=== PATIENT | male | born 1955 | race American Indian/Alaskan Native ===

== ENCOUNTER 2018-08-22 10:30 | Day surgery (SDC) | payer BC ==
[2018-08-14 10:34] LABS: Basophils # (Auto) 0.1 K/mm3 (0.0-0.1); Basophils % (Auto) 1.1 % (0.0-1.8); Eosinophils # (Auto) 0.2 K/mm3 (0.0-0.4); Eosinophils % (Auto) 3.4 % (0.0-4.3); Hematocrit 43.1 % (35.5-45.6); Hemoglobin 14.2 gm/dl (11.8-15.2); Lymphocytes % (Auto) 48.6 % (13.4-35.0); Mean Corpuscular HGB Conc 33 % (32-34); Mean Corpuscular Volume 86 fl (84-94); Monocytes # (Auto) 0.5 K/mm3 (0.0-0.8); Monocytes % (Auto) 8.1 % (0.0-7.3); Platelet Count 244 K/mm3 (140-440); Red Blood Count 5.03 M/mm3 (3.65-5.03); Red Cell Distribution Width 13.5 % (13.2-15.2)
[2018-08-14 10:44] LABS: INR 1.03 (0.87-1.13)
[2018-08-14 10:45] LABS: Partial Thromboplastin Time 21.8 Sec. (24.2-36.6)
[2018-08-14 10:49] LABS: Alanine Aminotransferase 25 units/L (7-56); Albumin 4.3 g/dL (3.9-5); BUN/Creatinine Ratio 12; Blood Urea Nitrogen 12 mg/dL (9-20); Calcium 10.6 mg/dL (8.4-10.2); Hemolysis Index 18
--- NOTE | 2018-08-14 12:30 | Anesthesia Consultation ---
Anesthesia Consult and Med Hx Date of service: 08/14/18 - Airway Anesthetic Teeth Evaluation: Good, Crowns ROM Head & Neck: Inadequate (slight decreased extension) Mental/Hyoid Distance: Adequate Mallampati Class: Class III Intubation Access Assessment: Possibly Difficult - Pulmonary Exam CTA: Yes - Cardiac Exam Cardiac Exam: RRR - Pre-Operative Health Status ASA Pre-Surgery Classification: ASA3 Proposed Anesthetic Plan: General - Pulmonary Hx Smoking: Yes (STOPPED 2010 (casual smoker X 14 YRS)) Hx Asthma: No (patient denies; states inhaler prescribed prior to DAVE diagnosis) Hx Respiratory Symptoms: No COPD: No Hx Sleep Apnea: Yes (+ CPAP) - Cardiovascular System Hx Hypertension: Yes Hx Heart Attack/AMI: No Hx Percutaneous Transluminal Coronary Angioplasty (PTCA): No Hx Cardia Arrhythmia: No - Central Nervous System Hx Seizures: No CVA: No Hx Psychiatric Problems: No - Gastrointestinal Hx Gastroesophageal Reflux Disease: Yes (occasional; treated with OTC antacids) - Endocrine Hx Renal Disease: No Hx End Stage Renal Disease: No Hx Liver Disease: No Hx Insulin Dependent Diabetes: No Hx Non-Insulin Dependent Diabetes: No Hx Thyroid Disease: No - Other Systems Hx Alcohol Use: Yes Hx Substance Use: No Hx Cancer: Yes (prostate Ca 2010; s/p prostatectomy) Hx Obesity: No - Additional Comments Anesthesia Medical History Comments: No hx anesthetic complications. Instructed to take amlodipine and hold losartan DOS.
[~2018-08-22 10:30] MED LIST: LACTATED RINGERS 1,000 ML IV SCH; LEVAQUIN 500MG/100ML 500 MG/100 ML BAG IV NR; VERSED IV NR
[2018-08-22] MEDS ORDERED: DILAUDID IV PRN (11:48)
--- NOTE | 2018-08-22 11:48 | Anesthesia Day of Surgery ---
Anesthesia Day of Surgery - Day of Surgery Patient Examined: Yes Patient H&P Reviewed: Yes Patient is NPO: Yes
[2018-08-22] MEDS ORDERED: LEVAQUIN 500MG/100ML 500 MG/100 ML BAG IV NR (12:00)
[2018-08-22] MEDS ORDERED: SUBLIMAZE ONE (12:12)
[2018-08-22] MEDS ORDERED: DIPRIVAN 10 MG/ML IV ONE ×2 (12:12→14:16)
[2018-08-22] MEDS ORDERED: XYLOCAINE MPF 2% ONE (12:12)
[2018-08-22] MEDS ORDERED: NEOSPORIN GU IR ONE (12:38)
[2018-08-22] MEDS ORDERED: NACL 0.9% 100 ML ONE (12:56)
[2018-08-22] MEDS ORDERED: NACL ONE (12:56)
[2018-08-22] MEDS ORDERED: BACITRACIN ONE (12:57)
[2018-08-22] MEDS ORDERED: DILAUDID ONE (14:06)
--- NOTE | 2018-08-22 15:24 | Short Stay Summary ---
Short Stay Documentation Date of service: 08/22/18 - History H&P: obtained from office - Allergies and Medications Current Medications: Allergies lisinopril Adverse Reaction (Verified 07/21/15 09:24) COUGH Penicillins Adverse Reaction (Verified 08/22/18 10:46) Itching Home Medications Medication Instructions Recorded Confirmed Last Taken Type Aspirin [Aspirin BABY CHEW TAB] 81 mg PO DAILY 05/08/14 08/22/18 1 Week Ago History ~08/15/18 Simvastatin 40 mg PO QHS 05/08/14 08/22/18 08/21/18 History Adalimumab [Humira Pen] 50 mcg SUB-Q Q2W 07/16/15 08/22/18 1 Week Ago History ~08/15/18 Losartan [Cozaar] 100 mg PO QDAY 07/16/15 08/22/18 08/22/18 08:00 History amLODIPine [Norvasc] 5 mg PO DAILY 07/16/15 08/09/18 08/21/18 History azaTHIOprine [Imuran] 1 tab PO DAILY 07/16/15 08/22/18 1 Month Ago History ~07/22/18 Albuterol Sulfate [Proair 90 mcg IH DAILY PRN 07/21/15 08/09/18 07/08/15 History Respiclick] Active Medications Hydromorphone HCl (Dilaudid) 0.5 mg IV Q10MIN PRN PRN Reason: Pain , Severe (7-10) Stop: 08/22/18 23:59 Lactated Ringer's (Lactated Ringers) 1,000 mls @ 100 mls/hr IV DIRECT HARSHIL Last Admin: 08/22/18 11:25 Dose: 100 mls/hr Documented by: Midazolam HCl (Versed) 2 mg IV PREOP NR Stop: 08/22/18 23:59 Last Admin: 08/22/18 11:27 Dose: 2 mg Documented by: - Brief post op/procedure progress note Date of procedure: 08/22/18 Pre-op diagnosis: malfunction AUS Post-op diagnosis: other (cuff erosion) Procedure: cysto,removal of cuff, (reservior & pump intact---capped ) Anesthesia: GETA Surgeon: WON MONTIEL Estimated blood loss: minimal Pathology: none (cuff) Specimen disposition: to lab Condition: stable - Hospital course Hospital course: bactrim & norco on chart - Disposition Condition at discharge: Stable Disposition: [id number] TO HOME OR SELFCARE Short Stay Discharge Plan Follow up with: KELLE SEARS MD [Primary Care Provider] - 7 Days
--- NOTE | 2018-08-22 16:26 | Operative Report ---
PREOPERATIVE DIAGNOSIS: Malfunctioning penile prosthesis. POSTOPERATIVE DIAGNOSIS: Cuff erosion. PROCEDURES: Cystoscopy, removal of cuff, intraoperative test of reservoir and capping of reservoir and pump, silk stitch. SURGEON: Cristian Richard MD ANESTHESIA: General. ESTIMATED BLOOD LOSS: Minimal. FLUIDS: Crystalloid. COMPLICATIONS: No complications. INDICATIONS: This patient is a 62-year-old gentleman known to my service, diagnosis of prostate cancer, underwent radical robotic prostatectomy in 2010 and continued to have problems with erections as well as urinary incontinence. He underwent inflatable penile prosthesis in 2013 and subsequent artificial urinary sphincter in 2015. He had done well until recently. In August 2013, noticed changes in flow of his urination, cystoscopy, no exposed device, valve appeared malfunction in the scrotum, could not compress the pump. Continue to follow conservatively as symptoms did not get better and so we needed to proceed with exploration because the pump now had frozen and revision of left groin tubing which could be seen and there was a cosmetic concern. DESCRIPTION OF PROCEDURE: The patient was taken to the operative suite, placed in a supine position. After adequate general anesthesia, he was placed in a dorsal lithotomy position, prepped and draped in a sterile fashion. Pancystourethroscopy was performed with a 16-Latvian flexible cystoscope. Obvious cuff erosion could be appreciated. Therefore, a perineal incision was made. Sharp dissection was taken down to the cuff, which was removed. Then, a cystoscopy was performed again. A 0.05 Glidewire was advanced into the bladder. A 16-Latvian Johnson catheter was placed in the bladder. Another incision made in the left groin. Sharp dissection was taken down to the tubing and there was a defect in the skin where you could palpate the tubing. The patient was concerned about that dissected the tubing free. Rubber-shod was placed on the tubing to the reservoir and cuff and it was cut. The fluid in the reservoir was 20 mL, clear fluid. A 25 mL was placed back in there. A metal cap was placed and tied with a silk and 1 inch silk was left to help track only come back. The cuff was then removed. The tubing to the reservoir and pump was cut and capped as well. WE WILL REEVALUATE THE PUMP FOR POSSIBLE ANEURYSM IN 3 MONTHS AND POSSIBLE REPLACEMENT OF THE CUFF AND PUMP. The goal is to leave the reservoir intact. Copious irrigation was performed. Adequate hemostasis achieved. The subcutaneous tissue was closed with 2-0 Vicryl in a running fashion. Skin was closed with jaime. Next, attention was taken to the perineum. Copious irrigation again was performed. Adequate hemostasis achieved. Subcutaneous tissue was closed with 2-0 Vicryl in a running fashion. Skin was closed with 2-0 Vicryl in interrupted fashion. The patient tolerated the procedure well. Johnson catheter was left indwelling, he will keep for 10 days. He was extubated and taken to recovery room. Fluffs and mesh pants were placed. He will go home on Bactrim and [place]. JOB# [id number] BRENDAN/LOUANN
[2018-08-22] MEDS ORDERED: NORCO 5/325 ONE (16:53)
[2018-08-22 17:49] VITALS: BP 144/78
== END 2018-08-22 10:31 | disposition home or self-care (01) ==
LOC: OR 10:30
PROVIDERS: ATTEND Urology
DX: T83.490A Other mechanical complication of implanted penile prosthesis, initial encounter (principal); I10 Essential (primary) hypertension; E78.5 Hyperlipidemia, unspecified; M06.9 Rheumatoid arthritis, unspecified; J45.909 Unspecified asthma, uncomplicated; E78.00 Pure hypercholesterolemia, unspecified; G47.30 Sleep apnea, unspecified; K21.9 Gastro-esophageal reflux disease without esophagitis; Z72.89 Other problems related to lifestyle; Z79.899 Other long term (current) drug therapy; Z79.01 Long term (current) use of anticoagulants; Z87.891 Personal history of nicotine dependence; Z98.890 Other specified postprocedural states; Z85.46 Personal history of malignant neoplasm of prostate; Z88.8 Allergy status to other drugs, medicaments and biological substances; Y83.8 Other surgical procedures as the cause of abnormal reaction of the patient, or of later complication, without mention of misadventure at the time of the procedure; Y92.89 Other specified places as the place of occurrence of the external cause
CPT/HCPCS: 36415; 52000; 54408; 80053; 85025; 85610; 85730; 88302; J1170; J1956; J2250; J2704; J3010; J7120

== ENCOUNTER 2019-02-25 06:20 | Observation (INO) | payer BC ==
[~2019-02-25 06:20] MED LIST changes: -LEVAQUIN 500MG/100ML 500 MG/100 ML BAG IV NR; +NEURONTIN PO NR
[2019-02-25] MEDS ORDERED: VANCOMYCIN 1,250 MG in NACL 0.9% 250ML 250 ML IV ONE (06:43)
[2019-02-25] MEDS ORDERED: CLEOCIN 900 MG/50 mL 900 MG/50 ML BAG IV NR (07:00)
[2019-02-25] MEDS ORDERED: GENTAMICIN IV SCH (07:00)
[2019-02-25] MEDS ORDERED: GENTAMICIN/NS 120MG/100ML 120 MG/100 ML BAG IV ONE (07:00)
[2019-02-25] MEDS ORDERED: NACL BACTERIOSTATIC INFILTRATI ONE (07:08)
--- NOTE | 2019-02-25 07:18 | Anesthesia Consultation ---
Anesthesia Consult and Med Hx Date of service: 02/25/19 - Airway Anesthetic Teeth Evaluation: Good ROM Head & Neck: Inadequate (restricred extension) Mental/Hyoid Distance: Adequate Mallampati Class: Class III Intubation Access Assessment: Possibly Difficult (previous easy LMA 4) - Pulmonary Exam CTA: Yes - Cardiac Exam Cardiac Exam: RRR - Pre-Operative Health Status ASA Pre-Surgery Classification: ASA3 - Pulmonary Hx Smoking: Yes (STOPPED 2010 (casual smoker X 14 YRS)) Hx Asthma: No (patient denies; states inhaler prescribed prior to DAVE diagnosis) Hx Respiratory Symptoms: No COPD: No Hx Sleep Apnea: Yes (compliant with CPAP) - Cardiovascular System Hx Hypertension: Yes (took amlodipine and losartan/HCTZ this morning) Hx Coronary Artery Disease: No Hx Heart Attack/AMI: No Hx Percutaneous Transluminal Coronary Angioplasty (PTCA): No - Central Nervous System Hx Seizures: No CVA: No Hx Back Pain: Yes (neck pain s/p ACDF) Hx Psychiatric Problems: No - Gastrointestinal Hx Gastroesophageal Reflux Disease: Yes (well controlled) - Endocrine Hx Renal Disease: No Hx Liver Disease: No Hx Insulin Dependent Diabetes: No Hx Non-Insulin Dependent Diabetes: No Hx Thyroid Disease: No - Other Systems Hx Cancer: Yes (prostate Ca 2010; s/p prostatectomy) Hx Obesity: No - Additional Comments Anesthesia Medical History Comments: No hx anesthetic complications.
--- NOTE | 2019-02-25 07:18 | Anesthesia Day of Surgery ---
Anesthesia Day of Surgery - Day of Surgery Patient Examined: Yes Patient H&P Reviewed: Yes Patient is NPO: Yes
[2019-02-25] MEDS ORDERED: SUBLIMAZE IV PRN (07:20)
[2019-02-25] MEDS ORDERED: BLOXIVERZ ONE (07:36)
[2019-02-25] MEDS ORDERED: XYLOCAINE MPF 2% ONE (07:36)
[2019-02-25] MEDS ORDERED: ROBINUL ONE (07:36)
[2019-02-25] MEDS ORDERED: ZOFRAN ONE (07:36)
[2019-02-25] MEDS ORDERED: ZEMURON IV ONE (07:36)
[2019-02-25] MEDS ORDERED: DECADRON ONE (07:36)
[2019-02-25] MEDS ORDERED: DIPRIVAN 10 MG/ML IV ONE (07:37)
[2019-02-25] MEDS ORDERED: VERSED ONE (07:37)
[2019-02-25] MEDS ORDERED: SUBLIMAZE ONE ×2 (07:37→09:36)
[2019-02-25] MEDS ORDERED: NACL 0.9% IR ONE (09:35)
[2019-02-25] MEDS ORDERED: WATER FOR IRRIG STERILE IR ONE (09:35)
[2019-02-25] MEDS ORDERED: MORPHINE IV PRN (11:12)
[2019-02-25] MEDS ORDERED: NARCAN 0.4 MG/1 ML IV PRN (11:12)
[2019-02-25] MEDS ORDERED: ZOFRAN IV PRN (11:12)
--- NOTE | 2019-02-25 11:12 | Short Stay Summary ---
Short Stay Documentation Date of service: 02/25/19 - History H&P: obtained from office - Allergies and Medications Current Medications: Allergies lisinopril Adverse Reaction (Verified 07/21/15 09:24) COUGH Penicillins Adverse Reaction (Verified 08/22/18 10:46) Itching Home Medications Medication Instructions Recorded Confirmed Last Taken Type Aspirin [Aspirin BABY CHEW TAB] 81 mg PO DAILY 05/08/14 02/25/19 02/05/19 09:00 History Simvastatin 40 mg PO QHS 05/08/14 02/13/19 02/24/19 14:00 History Adalimumab [Humira Pen] 50 mcg SUB-Q Q2W 07/16/15 02/25/19 01/15/19 07:00 History amLODIPine [Norvasc] 5 mg PO DAILY 07/16/15 02/13/19 02/24/19 14:00 History azaTHIOprine [Imuran] 1 tab PO DAILY 07/16/15 02/25/19 02/24/19 14:00 History Albuterol Sulfate [Proair 90 mcg IH DAILY PRN 07/21/15 02/13/19 07/08/15 History Respiclick] Cinacalcet [Sensipar] 30 mg PO QDAY 02/13/19 02/13/19 02/24/19 14:00 History Losartan/Hydrochlorothiazide 1 each PO DAILY 02/13/19 02/13/19 02/24/19 14:00 History [Losartan-Hctz 100-25 mg Tab] Omeprazole 40 mg PO DAILY 02/13/19 02/13/19 02/24/19 14:00 History Active Medications Celecoxib (Celebrex) 200 mg PO PREOP NR Stop: 02/25/19 23:00 Last Admin: 02/25/19 06:52 Dose: 200 mg Documented by: Fentanyl (Sublimaze) 50 mcg IV Q5MIN PRN PRN Reason: Pain , Severe (7-10) Stop: 02/25/19 20:00 Gabapentin (Neurontin) 300 mg PO PREOP NR Stop: 02/25/19 23:00 Last Admin: 02/25/19 06:53 Dose: 300 mg Documented by: Lactated Ringer's (Lactated Ringers) 1,000 mls @ 100 mls/hr IV DIRECT HARSHIL Last Admin: 02/25/19 06:53 Dose: 100 mls/hr Documented by: Midazolam HCl (Versed) 2 mg IV PREOP NR Stop: 02/25/19 23:00 Last Admin: 02/25/19 06:53 Dose: 2 mg Documented by: - Brief post op/procedure progress note Date of procedure: 02/25/19 Pre-op diagnosis: urethral erosion, urinary incontinence Post-op diagnosis: same Procedure: revision urinary sphincter (replace cuff --5.5cm, replace [id number]) Anesthesia: GETA Surgeon: WON MONTIEL Estimated blood loss: minimal Pathology: none Condition: stable - Hospital course Hospital course: pt has abx & pain meds - Disposition Condition at discharge: Stable Short Stay Discharge Plan Follow up with: KELLE SEARS MD [Primary Care Provider] - 7 Days
[2019-02-25] MEDS ORDERED: NON-FORMULARY (Albuterol Sulfate [Proair Respiclick] 90 MCG) IH PRN (11:16)
[2019-02-25] MEDS ORDERED: ADALIMUMAB SUB-Q SCH (11:30)
--- NOTE | 2019-02-25 13:37 | Operative Report ---
PREOPERATIVE DIAGNOSES: Urinary incontinence, urethral erosion, status post artificial urinary sphincter. POSTOPERATIVE DIAGNOSES: Urinary incontinence, urethral erosion, status post artificial urinary sphincter. PROCEDURE: Revision of artificial urinary sphincter (replace cuff 5.5 cm and replace reservoir 24 mL reservoir) and cystoscopy. ANESTHESIA: General. ESTIMATED BLOOD LOSS: Minimal. FLUIDS: Crystalloid. SURGEON: Cristian Richard MD INDICATIONS: This patient is a 63-year-old gentleman known to my service with a history of prostate cancer, underwent robotic prostatectomy in 2010. He has been without any signs of recurrence of his cancer. He has had urinary incontinence and erectile dysfunction; underwent penile prosthesis placement in 2013; underwent artificial urinary sphincter in 2016. He had done well until recently. He had problems with worsening urination. Cystoscopy earlier this year revealed cuff erosion and it was subsequently removed on 08/22/2018. He is on antibiotics for a period of time and presents now for revision. His cuff was removed. The pump and reservoir was left in place. DESCRIPTION OF PROCEDURE: The patient was taken to the operative suite, placed in a supine position. After adequate general anesthesia, placed in a dorsal lithotomy position, prepped and draped in a sterile fashion. Cystoscopy was performed. The integrity of the urethra was intact. Bladder, no tumors or stones were noted. He had a small bulbar stricture. The scope could traverse without difficulty. A 14-Malaysian Johnson catheter was placed and a midline perineal incision was placed with a Bovie. Sharp dissection was taken down to the urethra, which had some significant scarring due to her previous surgery. A plastic [place] retractor was used for exposure, could identify the urethra. Blunt and sharp dissection was used to get around it to allow the cuff measuring tool to measure the size, which was 5.5 cm. The pump was then tacked in the left hemiscrotum. Incision was made. The left inguinal area to identify the tubing which could be identified; however, the reservoir could not be identified and therefore, I elected to place a new reservoir. Cystoscopy was performed and confirmed after the dissection, there was no injury to the urethra. A 5.5 cm cuff was placed around the urethra without difficulty and secured into position. The tunneler was used to bring the tubing up to the left inguinal area. Rubber shods were applied. The tubing to the pump shods were placed and they were cut. An incision was made on the rectus fascia. A new reservoir was placed. A 2-0 Vicryl pursestring was used to secure below the skin. 24 mL of sterile saline was placed in the reservoir. The reservoir was connected to the pump with the quick click connection system. A straight quick click connection system was occurred, one connecting the pump to the cuff. The rubber shods were removed to allow pressurization of the system. Cystoscopy was performed. I could see adequate coaptation of the urethra when I cycled the pump. Copious irrigation was performed in the perineum as well as the left inguinal area. Adequate hemostasis achieved. The pump was deactivated. A 12-Malaysian Johnson catheter was placed with 10 mL in the balloon. Clear urine could be appreciated. The inguinal incision was closed with 2-0 Vicryl in a running fashion to secure the tubing below the deep in the tissues. Skin was closed with jaime. The perineal incision was closed with 2-0 Vicryl in a running fashion followed by 3-0 Vicryl in interrupted fashion and then another 3-0 Vicryl in the skin. Dressing was placed followed by mesh pants. The patient tolerated the procedure well and was extubated and taken to recovery room. He will be observed overnight and go home on antibiotics and pain medicine. JOB# [id number] BRENDAN/LOUANN
--- NOTE | 2019-02-25 14:05 | Post Anesthesia Evaluation ---
- Post Anesthesia Evaluation Patient Participated: Yes Airway Patent: Yes Stable Respiratory Function: Yes Nausea/Vomiting: No Temp > 96.8F: Yes Pain Manageable: Yes Adequeate Hydration: Yes Anesthesia Complications: No
[2019-02-25] MEDS ORDERED: LACTATED RINGERS 1,000 ML IV SCH (15:23)
[2019-02-25] MEDS ORDERED: PROVENTIL IH PRN (15:31)
[2019-02-25] MEDS ORDERED: VANCOMYCIN/NS 1 GM/250 ML 1 GM/250 ML BAG IV SCH (20:00)
[2019-02-25] MEDS ORDERED: PRAVACHOL PO SCH (22:00)
[2019-02-25] MEDS ORDERED: NON-FORMULARY (Simvastatin [Simvastatin] 40 MG) PO SCH (22:00)
[2019-02-26] MEDS: NORCO 5/325 PO PRN ×2 (00:50→09:55)
--- NOTE | 2019-02-26 07:45 | Consultation ---
History of Present Illness - Reason for Consult Consult date: 02/25/19 Medical management Requesting physician: WON MONTIEL - History of Present Illness S/p Shincter revision urethral erosion, urinary incontinence Procedure: revision urinary sphincter (replace cuff --5.5cm, replace [id number]) Anesthesia: GETA Post op doing well Past History Past Medical History: COPD, GERD, hypertension, hyperlipidemia Past Surgical History: Other (Sphincter revision) Social history: lives with family, full code Family history: hypertension Medications and Allergies Allergies Allergy/AdvReac Type Severity Reaction Status Date / Time lisinopril AdvReac COUGH Verified 07/21/15 09:24 Penicillins AdvReac Itching Verified 08/22/18 10:46 Home Medications Medication Instructions Recorded Confirmed Last Taken Type Aspirin [Aspirin BABY CHEW TAB] 81 mg PO DAILY 05/08/14 02/25/19 02/05/19 09:00 History Simvastatin 40 mg PO QHS 05/08/14 02/13/19 02/24/19 14:00 History Adalimumab [Humira Pen] 50 mcg SUB-Q Q2W 07/16/15 02/25/19 01/15/19 07:00 History amLODIPine [Norvasc] 5 mg PO DAILY 07/16/15 02/13/19 02/24/19 14:00 History azaTHIOprine [Imuran] 1 tab PO DAILY 07/16/15 02/25/19 02/24/19 14:00 History Albuterol Sulfate [Proair 90 mcg IH DAILY PRN 07/21/15 02/13/19 07/08/15 History Respiclick] Cinacalcet [Sensipar] 30 mg PO QDAY 02/13/19 02/13/19 02/24/19 14:00 History Losartan/Hydrochlorothiazide 1 each PO DAILY 02/13/19 02/13/19 02/24/19 14:00 History [Losartan-Hctz 100-25 mg Tab] Omeprazole 40 mg PO DAILY 02/13/19 02/13/19 02/24/19 14:00 History Active Meds: Active Medications Acetaminophen/Hydrocodone Bitart (Alpha 5/325) 2 each PO Q6H PRN PRN Reason: Pain, Moderate (4-6) Last Admin: 02/26/19 00:50 Dose: 2 each Documented by: Albuterol (Proventil) 2.5 mg IH Q4HRT PRN PRN Reason: Shortness Of Breath Amlodipine Besylate (Norvasc) 5 mg PO DAILY [facility] Azathioprine (Imuran) 50 mg PO DAILY PRN PRN Reason: ARTHRITIS Cinacalcet (Sensipar) 30 mg PO QDAY HARSHIL Hydrochlorothiazide (Hctz) 25 mg PO QDAY [facility] Lactated Ringer's (Lactated Ringers) 1,000 mls @ 100 mls/hr IV DIRECT [facility] Last Admin: 02/26/19 00:49 Dose: 100 mls/hr Documented by: Losartan Potassium (Cozaar) 100 mg PO QDAY [facility] Miscellaneous Medication (Adalimumab [Humira Pen]) 50 mcg SUB-Q Q2W HARSHIL Morphine Sulfate (Morphine) 2 mg IV Q4H PRN PRN Reason: Pain, Moderate (4-6) Last Admin: 02/25/19 20:14 Dose: 2 mg Documented by: Naloxone HCl (Narcan 0.4 Mg/1 Ml) 0.1 mg IV Q2MIN PRN PRN Reason: Res Rate </= 8 or 02 SAT < 92% Ondansetron HCl (Zofran) 4 mg IV Q8H PRN PRN Reason: N/V unrelieved by Reglan Pantoprazole Sodium (Protonix) 40 mg PO DAILY [facility] Pravastatin Sodium (Pravachol) 80 mg PO QHS [facility] Last Admin: 02/26/19 00:51 Dose: 80 mg Documented by: Review of Systems All systems: negative Exam - Constitutional Vitals: Temp Pulse Resp BP Pulse Ox 97.9 F 72 18 148/82 98 02/26/19 05:43 02/26/19 05:43 02/26/19 05:43 02/26/19 05:43 02/26/19 05:43 General appearance: Present: no acute distress, well-nourished - EENT Eyes: Present: PERRL ENT: hearing intact, clear oral mucosa - Neck Neck: Present: supple, normal ROM - Respiratory Respiratory effort: normal Respiratory: bilateral: CTA - Cardiovascular Heart rate: 70 Rhythm: regular Heart Sounds: Present: S1 & S2. Absent: rub, click - Extremities Extremities: no ischemia, pulses intact, pulses symmetrical, No edema Peripheral Pulses: within normal limits - Abdominal General gastrointestinal: Present: soft, non-tender, non-distended, normal bowel sounds Male genitourinary: Present: normal - Rectal Rectal Exam: deferred - Integumentary Integumentary: Present: clear, warm, dry - Musculoskeletal Musculoskeletal: gait normal, strength equal bilaterally - Psychiatric Psychiatric: appropriate mood/affect, intact judgment & insight - Neurologic Neurologic: CNII-XII intact, moves all extremities Results - Labs CBC & Chem 7: 02/25/19 07:20 Labs: Abnormal lab results 02/25/19 Range/Units 08:06 POC Hct 36 L (38-51) BMP 02/25/19 07:20 Potassium 4.0 Assessment and Plan - Patient Problems (1) HTN (hypertension) Current Visit: No Status: Chronic Qualifiers: Hypertension type: essential hypertension Qualified Code(s): I10 - Essential (primary) hypertension Plan to address problem: Cont antihypertensives (2) HLD (hyperlipidemia) Current Visit: No Status: Chronic Qualifiers: Hyperlipidemia type: mixed hyperlipidemia Qualified Code(s): E78.2 - Mixed hyperlipidemia Plan to address problem: Cont statins (3) Rheumatoid arthritis Current Visit: No Status: Chronic Qualifiers: Laterality: unspecified laterality Plan to address problem: Cont Humira and Azathioprine (4) GERD (gastroesophageal reflux disease) Current Visit: Yes Status: Acute Plan to address problem: On ppi's (5) DVT prophylaxis Current Visit: No Status: Acute Plan to address problem: On scd's and GI prophylaxis
[2019-02-26] MEDS ORDERED: HCTZ PO SCH (10:00)
[2019-02-26] MEDS ORDERED: PROTONIX PO SCH (10:00)
[2019-02-26] MEDS ORDERED: COZAAR PO SCH (10:00)
[2019-02-26] MEDS ORDERED: NON-FORMULARY (Omeprazole [Omeprazole] 40 MG) PO SCH (10:00)
[2019-02-26] MEDS ORDERED: NORVASC PO SCH (10:00)
[2019-02-26] MEDS ORDERED: SENSIPAR PO SCH (10:00)
[2019-02-26] MEDS ORDERED: IMURAN PO PRN (10:00)
[2019-02-26] MEDS ORDERED: NON-FORMULARY (Losartan/Hydrochlorothiazide [Losartan-Hctz 100-25 Mg Tab] 1 EACH) PO SCH (10:00)
--- NOTE | 2019-02-26 12:44 | Progress Note ---
Assessment and Plan Assessment and plan: (1) HTN (hypertension) Current Visit: No Status: Chronic Qualifiers: Hypertension type: essential hypertension Qualified Code(s): I10 - Essential (primary) hypertension Plan to address problem: Cont antihypertensives (2) HLD (hyperlipidemia) Current Visit: No Status: Chronic Qualifiers: Hyperlipidemia type: mixed hyperlipidemia Qualified Code(s): E78.2 - Mixed hyperlipidemia Plan to address problem: Cont statins (3) Rheumatoid arthritis Current Visit: No Status: Chronic Qualifiers: Laterality: unspecified laterality Plan to address problem: Cont Humira and Azathioprine (4) GERD (gastroesophageal reflux disease) Current Visit: Yes Status: Acute Plan to address problem: On ppi's (5) DVT prophylaxis Current Visit: No Status: Acute Plan to address problem: On scd's and GI prophylaxis Hospitalist Physical - Constitutional Vitals: Temp Pulse Resp BP Pulse Ox 98.0 F 72 19 122/75 95 02/26/19 07:23 02/26/19 07:23 02/26/19 07:23 02/26/19 07:23 02/26/19 10:11 General appearance: Present: no acute distress, well-nourished Results - Labs CBC & Chem 7: 02/25/19 07:20 Labs: Laboratory Last Values POC Hgb 12.2 (12-17) 02/25/19 08:06 POC Hct 36 (38-51) L 02/25/19 08:06 POC Sodium 140 mmol/L (138-146) 02/25/19 08:06 POC Potassium 3.9 (3.5-4.9) 02/25/19 08:06 POC Chloride 101 (98-109) 02/25/19 08:06 Potassium 4.0 mmol/L (3.6-5.0) 02/25/19 07:20 POC BUN 11 mg/dl (8-26) 02/25/19 08:06 POC Glucose 103 (70-105) 02/25/19 08:06 Active Medications - Current Medications Current Medications: Generic Name Dose Route Start Last Admin Trade Name Freq PRN Reason Stop Dose Admin Acetaminophen/Hydrocodone Bitart 2 each 02/25/19 11:12 02/26/19 09:55 [place] 5/325 PO 2 each Q6H PRN Administration Pain, Moderate (4-6) Albuterol 2.5 mg 02/25/19 15:31 Proventil IH Q4HRT PRN Shortness Of Breath Amlodipine Besylate 5 mg 02/26/19 10:00 02/26/19 09:52 Norvasc PO 5 mg DAILY HARSHIL Administration Azathioprine 50 mg 02/26/19 10:00 Imuran PO DAILY PRN ARTHRITIS Cinacalcet 30 mg 02/26/19 10:00 02/26/19 09:55 Sensipar PO 30 mg QDAY HARSHIL Administration Hydrochlorothiazide 25 mg 02/26/19 10:00 02/26/19 09:52 Hctz PO 25 mg QDAY HARSHIL Administration Lactated Ringer's 1,000 mls @ 100 mls/hr 02/25/19 15:23 02/26/19 00:49 Lactated Ringers IV 100 mls/hr DIRECT HARSHIL Administration Losartan Potassium 100 mg 02/26/19 10:00 02/26/19 09:50 Cozaar PO 100 mg QDAY HARSHIL Administration Miscellaneous Medication 50 mcg 02/25/19 11:30 Adalimumab [Humira Pen] SUB-Q Q2W HARSHIL Morphine Sulfate 2 mg 02/25/19 11:12 02/25/19 20:14 Morphine IV 2 mg Q4H PRN Administration Pain, Moderate (4-6) Naloxone HCl 0.1 mg 02/25/19 11:12 Narcan 0.4 Mg/1 Ml IV Q2MIN PRN Res Rate </= 8 or 02 SAT < 92% Ondansetron HCl 4 mg 02/25/19 11:12 Zofran IV Q8H PRN N/V unrelieved by Lambert Pantoprazole Sodium 40 mg 02/26/19 10:00 02/26/19 09:51 Protonix PO 40 mg DAILY HARSHIL Administration Pravastatin Sodium 80 mg 02/25/19 22:00 02/26/19 00:51 Pravachol PO 80 mg QHS HASRHIL Administration
[2019-02-26 12:45] VITALS: BP 137/82
== END 2019-02-26 13:20 | disposition home or self-care (01) ==
LOC: OR 06:20 → 3A 11:12 → 3B-SURG 12:42
PROVIDERS: ADMIT Urology; ATTEND Urology
DX: N36.8 Other specified disorders of urethra (principal); R32 Unspecified urinary incontinence
CPT/HCPCS: 36415; 53447; 82803; 84132; 94760; 96365; 96366; 96375; A4217; A9270; C1725; C1815; G0378; J1100; J1580; J2250; J2270; J2405; J2704; J2710; J3010; J3370; J7050; J7120